=== PATIENT | female | born 1985 | race Caucasian/White ===

== ENCOUNTER 2020-09-07 08:38 | Emergency (ER) | payer OTHER ==
[2020-09-07 09:07] LABS: BASOPHIL 0.5 % (0-2); EOSINOPHIL 2.8 % (0-5); HCT 40.9 % (37.0-47.0); HGB 13.6 g/dl (12.5-16.0); LYMPHOCYTE 43.8 % (15-48); MCH 29.9 pg (25.0-31.0); MCHC 33.3 g/dL (32.0-36.0); MCV 89.9 fL (78.0-100.0); MONOCYTE 8.3 % (0-12); MPV 9.2 fL (6.0-9.5); NEUTROPHIL 43.9 % (41-80); NRBC 0; PLT 259 K/uL (150-400); RBC 4.55 M/uL (4.20-5.40); RDW 12.7 % (11.5-14.0); WBC 6.1 K/uL (4.0-10.5)
[2020-09-07 09:21] LABS: BILIRUBIN NEGATIVE (NEGATIVE); BLOOD 3+ Ery/uL (NEGATIVE); CLARITY CLEAR (CLEAR); COLOR YELLOW (YELLOW); GLUCOSE (U) NORMAL (NORMAL); LEUKOCYTES NEGATIVE Leu/uL (NEGATIVE); NITRITE NEGATIVE (NEGATIVE); PROTEIN NEGATIVE (NEGATIVE); SPECIFIC GRAVITY >=1.030 (1.001-1.030); UROBILINOGEN 0.2 mg/dL (0.2-1.0); pH 5.5 (5.0-9.0)
[2020-09-07 09:25] LABS: ALBUMIN 3.5 g/dL (3.4-5.0); BILIRUBIN - TOTAL 0.3 mg/dL (0.2-1.0); CREATININE 0.82 mg/dL (0.51-0.95); GLOBULIN (CALCULATION) 4.1 g/dL; POTASSIUM 4.2 mmol/L (3.5-5.1); TOTAL PROTEIN 7.6 g/dL (6.4-8.2)
[2020-09-07 09:32] LABS: BACTERIA TRACE
== END 2020-09-07 10:02 | disposition home or self-care (01) ==
LOC: FER 08:38
PROVIDERS: Emergency Medicine
DX: R10.9 Unspecified abdominal pain (principal); M54.9 Dorsalgia, unspecified; N20.0 Calculus of kidney; N83.201 Unspecified ovarian cyst, right side; Z90.49 Acquired absence of other specified parts of digestive tract; Z90.710 Acquired absence of both cervix and uterus; Z88.1 Allergy status to other antibiotic agents; Z88.0 Allergy status to penicillin
CPT/HCPCS: 36415; 80053; 81001; 85025; J1885; J2405

== ENCOUNTER 2020-09-11 22:45 | Emergency (ER) | payer OTHER ==
[2020-09-12] MEDS ORDERED: HYDROCODON-ACE1 EAC2 PO (01:29)
== END 2020-09-12 02:04 | disposition home or self-care (01) ==
LOC: FER 22:45
DX: M54.6 Pain in thoracic spine (principal); R07.1 Chest pain on breathing; Z90.49 Acquired absence of other specified parts of digestive tract; Z90.710 Acquired absence of both cervix and uterus; Z88.1 Allergy status to other antibiotic agents; Z88.0 Allergy status to penicillin
CPT/HCPCS: 71046; 96372; J0595; J3360

== ENCOUNTER 2021-07-22 13:10 | Emergency (ER) | payer OTHER ==
[~2021-07-22] VITALS: Ht 157.5 cm; Wt 101.2 kg
[~2021-07-22 13:10] MED LIST: HYDROCODON-ACE1 EAC2 PO
[2021-07-22] MEDS ORDERED: NORCO 5-325 TA1 EACH PO (14:08)
== END 2021-07-22 15:52 | disposition home or self-care (01) ==
LOC: FER 13:10
DX: S82.831A Other fracture of upper and lower end of right fibula, initial encounter for closed fracture (principal); Z88.1 Allergy status to other antibiotic agents; Z91.040 Latex allergy status; X50.1XXA Overexertion from prolonged static or awkward postures, initial encounter; Y93.89 Activity, other specified
CPT/HCPCS: 73610